=== PATIENT | female | born 2000 | race Caucasian/White ===

== ENCOUNTER 2020-09-10 16:16 | Emergency (ER) | payer SELFPAY ==
--- OUTSIDE RECORDS SUMMARY | 2020-09-10 16:19 | XMS REPORT | Continuity of Care Document ---
:2000 Author Organization [facility] t Address [address] [place] [address] Care Team Providers Name Role Phone Schuyler CUNNINGHAM Attending Clinician Unavailable Brent CUNNINGHAM Attending Clinician Unavailable Singer STARKEY Attending Clinician Doctor Unassigned, Name Attending Clinician Unavailable Pj Brenner DO Attending Clinician Salvador TORRES N Attending Clinician Alondra Del Angel MD Attending Clinician Jon TORRES R Attending Clinician Alondra Del Angel MD Admitting Clinician Problems This patient has no known problems. Allergies, Adverse Reactions, Alerts This patient has no known allergies or adverse reactions. Medications This patient has no known medications. Procedures This patient has no known procedures. Encounters Start End Encounter Admission Attending Care Care Encounter Source Date/Time Date/Time Type Type Clinicians Facility Department ID 2020-07-01 2020-07-01 TAM Ba [id number] 00:00:00 00:00:00 Triage Aminta GUAMANY [id number] [facility] [id number] 2020-05-26 2020-05-26 TAM Rodriguez [id number] 00:00:00 00:00:00 Triage Pedro Luis GUAMANY [id number] [facility] [id number] 2020-05-23 2020-05-23 Emergency Singer [facility] [id number] 00:57:00 01:27:00 Hermes Arnold [id number] [place] [id number] [place] [id number] 2020-05-23 2020-05-23 Orders Doctor TAM [id number] 00:00:00 00:00:00 Only Unassigned, KELLY [id number] [place] [facility] [id number] 2020-05-22 2020-05-22 Patient Jordin [facility] [id number] 00:00:00 00:00:[address] 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 [id number] 2019-10-17 2019-10-17 [facility] [id number] 00:00:00 00:00:00 Hemant Barnett FIELD LOGISTICS COORDINATOR [id number] [facility] [id number] MATERNAL [id number] & CHILD 107 [facility] Results This patient has no known results.
[2020-09-10 16:49] LABS: Urine Blood Negative (Negative); Urine Glucose Negative (Negative); Urine Protein Trace (Negative); Urine Specific Gravity >=1.030 (1.005-1.030); Urine pH 6.5 (5.0-7.0)
[2020-09-10 17:37] LABS: Urine Bacteria 20-50 /HPF (<20); Urine RBC NONE SEEN /HPF (NONE SEEN)
[2020-09-10 17:38] LABS: Urine Mucus HEAVY /HPF (NONE SEEN)
--- NOTE | 2020-09-10 20:33 | RAD REPORT ---
EXAM DESCRIPTION: RAD - Chest Single View - 09/10/2020 8:12 pm CLINICAL HISTORY: syncope, shortness of breath COMPARISON: None TECHNIQUE: AP portable chest image was obtained 09/10/2020 8:12 pm . FINDINGS: Lungs are clear. Heart and vasculature are normal. No measurable pleural effusion and no p neumothorax. No acute bony abnormality seen. No acute aortic findings suspected. IMPRESSION: No acute cardiopulmonary process.
--- NOTE | 2020-09-10 20:34 | RAD REPORT ---
EXAM DESCRIPTION: CT - Head Brain Wo Cont - 09/10/2020 8:12 pm CLINICAL HISTORY: SYNCOPE, dizziness COMPARISON: No comparisons TECHNIQUE: Axial 5 mm thick images of the head were obtained without IV contrast. All CT scans are performed using dose optimization technique as appropriate and may include automated exposure control or mA/KV adjustment according to patient size. FINDINGS: No intracranial hemorrhage, mass, edema or shift of mid-line structures. No acute infarcti on changes seen. No abnormal extra-axial fluid collections. Ventricles are normal. Mastoid air cells and middle ears are clear. No paranasal sinus finding. No globe or orbital content abnormality identifiable. No acute bony findings. IMPRESSION: Negative non-contrast CT head examination.
[2020-09-10 20:57] LABS: Absolute Lymphocytes (CBC) 0.7 K/uL (0.7-4.9); Basophils % 0.2 % (0-1.3); Hematocrit 43.7 % (36.0-45.0); Lymphocytes % 11.5 % (15.3-44.8); MPV 9.6 fL (7.6-11.3); RBC Red Blood Cell Count 4.71 M/uL (3.86-4.86)
[2020-09-10] MEDS ORDERED: NA CHLORIDE 0.9% 1,000 ML ONE (21:05)
[2020-09-10 21:14] LABS: Barbiturates NEGATIVE (NEGATIVE); Benzodiazepines NEGATIVE (NEGATIVE); Cocaine NEGATIVE (NEGATIVE); METHAMPHETAM NEGATIVE (NEGATIVE); Methadone NEGATIVE (NEGATIVE); Opiates NEGATIVE (NEGATIVE); Phencyclidine NEGATIVE (NEGATIVE); THC Cannibis NEGATIVE (NEGATIVE)
[2020-09-10 21:19] LABS: Albumin 4.4 g/dL (3.4-5.0); Bilirubin Direct 0.2 mg/dL (0-0.2); Bilirubin Total 0.7 mg/dL (0.2-1.0); Protein, Total 7.9 g/dL (6.4-8.2)
--- NOTE | 2020-09-10 21:54 | EDPHYS ---
Physician Documentation [facility] Name: Zina Rajan Age: 19 yrs Sex: Female : 2000 Arrival Date: 09/10/2020 Time: 16:19 Bed 27 Private MD: ED Physician Pedro Luis Martines HPI: 09/10 19:50 This 19 yrs old Female presents to ER via Ambulatory with complaints of cp Fatigue, Ear Pain, Vomiting. 19:50 The patient has experienced syncope, lost consciousness. cp 19:50 Onset: The symptoms/episode began/occurred yesterday. Duration: This was a single cp episode, that lasted an unknown period of time. Context: occurred at home, Just prior to the episode the patient experienced lightheadedness. Associated injury: The patient did not suffer any apparent associated injury. Associated signs and symptoms: Pertinent positives: diarrhea, nausea, vomiting, weakness, sinus congestion/pressure. 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 Flu vaccine is up to date. - Social history:: Smoking status: Patient denies any tobacco usage or history of. ROS: 19:55 Constitutional: Negative for body aches, chills, fever. cp 19:55 Eyes: Negative for injury, pain, redness, and discharge. cp 19:55 Neuro: Positive for headache, syncope, Negative for altered mental status, weakness. cp 19:55 Cardiovascular: Negative for chest pain, edema, palpitations. cp 19:55 Respiratory: Negative for cough, shortness of breath, wheezing. 19:55 ENT: Positive for ear pain, sinus congestion, sinus pain, Negative for drainage from cp ear(s), sore throat, difficulty swallowing, difficulty handling secretions. 19:55 Abdomen/GI: Positive for nausea and vomiting, diarrhea, Negative for abdominal pain, cp constipation. 19:55 Skin: Negative for rash. 19:55 All other systems are negative. Exam: 20:03 Constitutional: The patient appears in no acute distress, alert, awake, cp non-diaphoretic, non-toxic, well developed, well nourished. 20:03 Head/Face: Normocephalic, atraumatic. cp 20:03 Eyes: Periorbital structures: appear normal, Pupils: equal, round, and reactive to light and accomodation, Extraocular movements: intact throughout, Conjunctiva: normal, no exudate, no injection, Sclera: no appreciated abnormality, Lids and lashes: appear normal, bilaterally. 20:03 ENT: External ear(s): are unremarkable, Ear canal(s): are normal, clear, TM's: dullness, bilaterally, Nose: is normal, Mouth: Lips: moist, Oral mucosa: pink and intact, moist, Posterior pharynx: Airway: no evidence of obstruction, patent, Tonsils: are normal in appearance, erythema, is not appreciated, exudate, is not appreciated. 20:03 Neck: ROM/movement: is normal, is supple, no meningismus, no nuchal rigidity, Lymph nodes: no appreciated lymphadenopathy. 20:03 Chest/axilla: Inspection: normal, Palpation: is normal, no crepitus, no tenderness. 20:03 Cardiovascular: Rate: tachycardic, Rhythm: regular, Edema: is not appreciated, JVD: is not appreciated. 20:03 Respiratory: the patient does not display signs of respiratory distress, Respirations: normal, no use of accessory muscles, no retractions, labored breathing, is not present, Breath sounds: are clear throughout, no decreased breath sounds, no stridor, no wheezing. 20:03 Abdomen/GI: Inspection: abdomen appears normal, Palpation: abdomen is soft and non-tender, in all quadrants. 20:03 Neuro: Orientation: to person, place \T\ time. Mentation: is normal, Cerebellar function: is grossly normal, Motor: moves all fours, strength is normal, Sensation: is normal. 20:55 ECG was reviewed by the Attending Physician. cp Vital Signs: 16:35 BP 115 / 82; Pulse 120; Resp 18 S; Temp 97.8(TE); Pulse Ox 99% on R/A; Weight 70.31 kg ca1 (R); Height 5 ft. 3 in. (160.02 cm) (R); Pain 0/10; 16:35 Body Mass Index 27.46 (70.31 kg, 160.02 cm) ca1 MDM: 19:37 Patient medically screened. brea 20:00 Differential Diagnosis: cardiac arrhythmia, , anemia, sinusitis, cardiac cp arrythmia. 21:52 Data reviewed: vital signs, nurses notes, lab test result(s), EKG, radiologic studies, cp CT scan, plain films. 21:52 Test interpretation: by ED physician or midlevel provider: ECG, plain radiologic cp studies. Counseling: I had a detailed discussion with the patient and/or guardian regarding: the historical points, exam findings, and any diagnostic results supporting the discharge/admit diagnosis, lab results, radiology results, to return to the emergency department if symptoms worsen or persist or if there are any questions or concerns that arise at home. Response to treatment: the patient's symptoms have markedly improved after treatment, patient is well hydrated. VSS. Symptoms improved with IV fluids. Will discharge to home for continued monitoring. 09/10 16:49 Order name: Urine Microscopic Only; Complete Time: 19:44 ss 09/10 19:44 Interpretation: Normal except: SQEPI 20-50; UBACT 20-50. 09/10 16:49 Order name: Urine Dipstick-Ancillary; Complete Time: 19:44 EDMS 09/10 16:58 Order name: Urine --Ancillary (enter results); Complete Time: 19:44 eb 09/10 19:46 Order name: Basic Metabolic Panel; Complete Time: 21:24 cp 09/10 21:24 Interpretation: Normal except: GLUC 71; GFR 77. 09/10 19:46 Order name: CBC with Diff; Complete Time: 21:24 cp 09/10 19:46 Order name: Hepatic Function; Complete Time: 21:24 cp 09/10 19:46 Order name: Lipase; Complete Time: 21:24 cp 09/10 19:46 Order name: XRAY Chest (1 view); Complete Time: 20:45 cp 09/10 20:45 Interpretation: Report review. 09/10 19:46 Order name: CT Head Brain wo Cont; Complete Time: 20:45 cp 09/10 20:45 Interpretation: Report reviewed. 09/10 19:46 Order name: D-Dimer; Complete Time: 21:24 cp 09/10 19:46 Order name: UDS; Complete Time: 21:24 cp 09/10 21:47 Order name: SARS-COV-2 RT PCR EDNY 09/10 16:49 Order name: Urine Dipstick-Ancillary (obtain specimen); Complete Time: 16:49 ss 09/10 16:49 Order name: Urine Test (obtain specimen); Complete Time: 16:49 ss 09/10 19:46 Order name: IV Saline Lock; Complete Time: 20:35 cp 09/10 19:46 Order name: Labs collected and sent; Complete Time: 20:35 cp 09/10 19:46 Order name: EKG; Complete Time: 19:47 09/10 19:46 Order name: EKG - Nurse/Tech; Complete Time: 20:54 cp EC:55 Rate is 85 beats/min. Rhythm is regular. DE interval is normal. QRS interval is normal. cp QT interval is normal. T waves are Inverted in lead aVR. Interpreted by me. Reviewed by me. Administered Medications: 20:45 Drug: NS 0.9% 1000 ml Route: IV; Rate: 1 bolus; Site: right antecubital; em 09/11 03:38 Follow up: IV Status: Completed infusion; IV Intake: 1000ml em Disposition: 13:19 Co-signature as Attending Physician, Pedro Luis Martines MD I agree with the assessment and brea plan of care. Disposition Summary: 09/10/20 21:53 Discharge Ordered Location: Home cp Problem: new cp Symptoms: have improved cp Condition: Stable cp Diagnosis - Other acute sinusitis cp - UTI/ Urinary tract infection, site not specified cp - Syncope Near cp Followup: cp - With: Private Physician - When: 2 - 3 days - Reason: Recheck today's complaints Discharge Instructions: - Discharge Summary Sheet cp - Sinusitis, Adult cp - Urinary Tract Infection, Adult cp - Syncope cp Forms: - Medication Reconciliation Form cp - Thank You Letter cp - Antibiotic Education cp - Prescription Opioid Use cp Prescriptions: - Flonase Allergy Relief 50 mcg/actuation Nasal spray,suspension - spray 1 spray by INTRANASAL route once daily; 1 Applicator; Refills: 0, Product cp Selection Permitted - Augmentin 875-125 mg Oral Tablet - take 1 tablet by ORAL route every 12 hours for 10 days; 20 tablet; Refills: 0, cp Product Selection Permitted - Zofran 4 mg Oral Tablet - take 1 tablet by ORAL route every 12 hours As needed; 20 tablet; Refills: 0, cp Product Selection Permitted Signatures: Dispatcher [employer] EDPedro Luis Cardona MD MD cha Munoz, Edgar, RN RN Jaimee Hurley RN RN ss Page, Corey, PA PA cp Acob, Cheryl, RN RN ca1 Corrections: (The following items were deleted from the chart) 09/10 20:54 19:47 CORONAVIRUS+BRZ ordered. EDMS EDMS
--- NOTE | 2020-09-10 21:54 | ER ---
Nurse's Notes [facility] Name: Zina Rajan Age: 19 yrs Sex: Female : 2000 Arrival Date: 09/10/2020 Time: 16:19 Bed 27 Private MD: Diagnosis: Other acute sinusitis;UTI/ Urinary tract infection, site not specified;Syncope Near Presentation: 09/10 16:35 Chief complaint: Patient states: Blacked out yesterday. Today, congestion, N/V/D ca1 diarrhea today, R ear pressure. I also feel like I have a UTI. Coronavirus screen: Client denies travel out of the [place] in the last 14 days. congestion, diarrhea, nausea, vomiting. Client presents with at least one sign or symptom that may indicate coronavirus-19. Standard/surgical mask placed on the client. Provider contacted for isolation considerations. Ebola Screen: Patient negative for fever greater than or equal to 101.5 degrees Fahrenheit, and additional compatible Ebola Virus Disease symptoms Patient denies exposure to infectious person. Patient denies travel to an Ebola-affected area in the 21 days before illness onset. No symptoms or risks identified at this time. Initial Sepsis Screen: Does the patient meet any 2 criteria? No. Patient's initial sepsis screen is negative. Does the patient have a suspected source of infection? No. Patient's initial sepsis screen is negative. Risk Assessment: Do you want to hurt yourself or someone else? Patient reports no desire to harm self or others. Onset of symptoms was September 10, 2020. 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 Flu vaccine is up to date. - Social history:: Smoking status: Patient denies any tobacco usage or history of. Screenin:33 Abuse screen: Denies threats or abuse. Nutritional screening: No deficits noted. em Tuberculosis screening: No symptoms or risk factors identified. Fall Risk None identified. Assessment: 19:58 General: Appears in no apparent distress. comfortable, Behavior is calm, cooperative, em appropriate for age. Pain:. Pain: Denies pain. Neuro: Level of Consciousness is awake, alert, obeys commands, Oriented to person, place, time, situation. Cardiovascular: Capillary refill < 3 seconds Patient's skin is warm and dry. Respiratory: Airway is patent Respiratory effort is even, unlabored, Respiratory pattern is regular, symmetrical. EENT: Nares are clear Derm: Skin is intact, is healthy with good turgor, Skin is pink, warm \T\ dry. Musculoskeletal: Capillary refill < 3 seconds, Range of motion: intact in all extremities. 21:47 Reassessment: Patient appears in no apparent distress at this time. Patient and/or em family updated on plan of care and expected duration. Pain level reassessed. Patient is alert, oriented x 3, equal unlabored respirations, skin warm/dry/pink. Vital Signs: 16:35 BP 115 / 82; Pulse 120; Resp 18 S; Temp 97.8(TE); Pulse Ox 99% on R/A; Weight 70.31 kg ca1 (R); Height 5 ft. 3 in. (160.02 cm) (R); Pain 0/10; 16:35 Body Mass Index 27.46 (70.31 kg, 160.02 cm) ca1 ED Course: 16:19 Patient arrived in ED. mr 16:37 Triage completed. ca1 16:37 Arm band placed on right wrist. ca1 16:53 Urine Microscopic Only Sent. [facility] 19:27 Pedro Luis Rodriguez PA is PHCP. cp 19:27 Heber López MD is Attending Physician. cp 19:33 Maycol Nassar, OCTAVIO is Primary Nurse. em 19:37 Attending Physician role handed off by Heber López MD brea 19:37 Pedro Luis Martines MD is Attending Physician. brea 20:11 CT Head Brain wo Cont In Process Unspecified. EDMS 20:12 XRAY Chest (1 view) In Process Unspecified. EDMS 20:33 Patient has correct armband on for positive identification. Bed in low position. Call em light in reach. 20:35 Inserted saline lock: 20 gauge in right antecubital area, using aseptic technique. ld1 Blood collected. 22:11 No provider procedures requiring assistance completed. IV discontinued, intact, em bleeding controlled, No redness/swelling at site. Pressure dressing applied. Administered Medications: 20:45 Drug: NS 0.9% 1000 ml Route: IV; Rate: 1 bolus; Site: right antecubital; em 09/11 03:38 Follow up: IV Status: Completed infusion; IV Intake: 1000ml em Intake: 03:38 IV: 1000ml; Total: 1000ml. em Outcome: 09/10 21:53 Discharge ordered by . cp 22:11 Discharged to home ambulatory. em 22:11 Condition: stable 22:11 Discharge instructions given to patient, Instructed on discharge instructions, follow up and referral plans. medication usage, Demonstrated understanding of instructions, follow-up care, medications, Prescriptions given X 3. 22:12 Patient left the ED. em Signatures: Dispatcher [employer] EDMS Pedro Luis Martines MD MD cha Rivera, Mary mr Maycol Nassar, RN RN em Pedro Luis Rodriguez, Noemi Tran cp [facility] Payal Hearn RN RN [facility] Radha Carlisle RN RN ld1 Corrections: (The following items were deleted from the chart) 20:54 20:35 CORONAVIRUS+MR.LAB.BRZ drawn and sent. ld1 EDAR
[2020-09-10 22:39] VITALS: BP 115/82; TEMP 97.8; O2SAT 99
--- NOTE | 2020-09-11 19:16 | EKG ---
Test Date: 2020-09-10 Test Time: 20:52:51 Press Secretary: MATI MEASUREMENT RESULTS: Intervals: Rate: 85 NJ: 142 QRSD: 76 QT: 394 QTc: 468 Stewart: P: 56 NJ: 142 QRS: 85 T: 65 INTERPRETIVE STATEMENTS: Normal sinus rhythm Normal ECG No previous ECG available for comparison Electronically Signed On 09-11-20 19:13:44 CDT by Jv Eng
== END 2020-09-10 22:12 | disposition home or self-care (01) ==
LOC: ER 16:16
DX: J01.80 Other acute sinusitis (principal); N39.0 Urinary tract infection, site not specified; Z20.822 Contact with and (suspected) exposure to COVID-19
CPT/HCPCS: 36415; 70450; 71045; 80048; 80076; 80307; 81003; 81015; 81025; 83690; 85025; 85379; 93005; 96360; 96361; 99284; J7030; U0003